=== PATIENT | male | born 2000 | race African-American/Black ===

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

== ENCOUNTER 2024-05-16 09:15 | Emergency (ER) | payer MEDICAID ==
[~2024-05-16] VITALS: Ht 185.4 cm; Wt 59.0 kg
[2024-05-16 09:16] VITALS: O2SAT 99
[2024-05-16] MEDS ORDERED: KETOROLAC 15MG/ML VIAL IM ONE (10:45)
[2024-05-16] MEDS ORDERED: DEXAMETHASONE 10 MG/ML VIAL PO ONE (10:45)
[2024-05-16] MEDS ORDERED: CEFTRIAXONE 2,000 MG in DEXT 5% WATER 100 ML IV SCH (11:00)
[2024-05-16 13:21] LABS: HEMATOCRIT 44.2 % (42.0-52.0); MEAN CORPUSCULAR HEMOGLOBIN 31.2 pg (28.0-32.0); MEAN CORPUSCULAR HGB CONC 33.9 g/dL (31.0-37.0); MEAN CORPUSCULAR VOLUME 91.8 fL (80.0-94.0); PLATELET 212 x1000/uL (130-400); RED BLOOD CELL COUNT 4.82 mill/uL (4.7-6.1); RED CELL DISTRIBUTION WIDTH 13.1 % (11.6-14.6); WHITE BLOOD COUNT 17.8 x1000/uL (4.5-11.0)
[2024-05-16 13:49] LABS: CHLORIDE 106 mEq/L (98-107); POTASSIUM 3.8 mEq/L (3.5-5.1); SODIUM 140 mEq/L (136-145)
[2024-05-16 13:50] LABS: CALCIUM 10.2 mg/dL (8.7-10.4); CARBON DIOXIDE 21 mEq/L (21-32)
[2024-05-16 13:55] LABS: GLUCOSE 85 mg/dL (70-105); UREA NITROGEN BLOOD 11 mg/dL (9-23)
[2024-05-16] MEDS: DEXAMETHASONE 10 MG/ML VIAL PO NR (15:01)
[2024-05-16] MEDS: KETOROLAC 15MG/ML VIAL IM NR (15:01)
[2024-05-16] MEDS: SODIUM CHLORIDE 0.9% 1,000 ML IV ONE (15:02)
[2024-05-16 15:05] VITALS: BP 132/79; PULSE 70; RESP 18; TEMP 36.66960; O2SAT 100
[2024-05-16] MEDS: CEFTRIAXONE 2GM/50ML 50 ML IV NR (15:17)
[2024-05-16] MEDS ORDERED: AMOX1TAB16 MT (16:03)
[2024-05-16] MEDS ORDERED: IOHEXOL-300 100 ML BOTTLE ONE (16:17)
[2024-05-17] MEDS ORDERED: IOHEXOL-300 100 ML BOTTLE ONE (00:04)
== END 2024-05-16 16:26 | disposition home or self-care (01) ==
LOC: ER 09:15
DX: K65.1 Peritoneal abscess (principal); M54.2 Cervicalgia
CPT/HCPCS: 80048; 85027; 36415; 70491; 96365; 96372; 99285; Q9967; J0696; J1100; J1885; J7030; Z7610